=== PATIENT | male | born 2000 | race African-American/Black ===

== ENCOUNTER 2020-07-16 07:42 | Emergency (ER) | payer SELFPAY ==
--- NOTE | 2020-07-16 08:39 | CT ---
Exam: CT cervical spine without contrast HISTORY: Trauma. Pain. COMPARISON: None FINDINGS: No craniocervical dissociation. Appropriate alignment of the lateral masses of C1 and C2. Intact odon toid process Appropriate alignment of the facets. Straightening of normal cervical lordosis may be due to patient position, muscle spasm or cervical co llar Soft tissue neck structures: No mass, lymphadenopathy or hematoma. No prevertebral soft tissue swelli ng. Upper mediastinum and lung apices: No posttraumatic change. Incompletely evaluated calcification in t he right paratracheal region may represent calcified lymph nodes Central spinal canal: Neural foramina and central spinal canal are patent. Evaluation is limited by t echnique Vertebral bodies: Cervical spine vertebral body height is maintained. No fracture. IMPRESSION: 1. No cervical spine fracture 2. Incidental calcifications in the right paratracheal region which may represent calcified. Nonemerg ent clinical correlation and further evaluation is recommended
--- NOTE | 2020-07-16 08:46 | CT ---
Exam: Head CT without contrast HISTORY: Trauma. Pain. COMPARISON: none FINDINGS: Hemorrhage: No intraparenchymal hemorrhage or extra-axial hematoma. Brain parenchyma: Cortical [place]-white matter differentiation is preserved. No mass effect or midline shift. Basilar cisterns are patent. Ventricular system: Ventricles and sulci are patent and symmetric. Note is made of a cavum septum beth idum and cavum Rufino Calvarium: Intact. Sinuses and mastoid air cells: Bilateral maxillary sinus disease with air-fluid levels and mucosal th ickening IMPRESSION: 1. No intracranial posttraumatic sequelae
== END 2020-07-16 09:05 | disposition home or self-care (01) ==
LOC: MADERS 07:42
DX: S00.83XA Contusion of other part of head, initial encounter (principal); J45.909 Unspecified asthma, uncomplicated; V89.2XXA Person injured in unspecified motor-vehicle accident, traffic, initial encounter
CPT/HCPCS: 70450; 72125; G0390